=== PATIENT | female | born 1935 | race Caucasian/White ===

== ENCOUNTER 2023-08-07 08:42 | Outpatient (AMB) | payer MEDICARE, SELFPAY ==
[2023-08-07 09:01] VITALS: BP 136/90; PULSE 99; TEMP 36.6; O2SAT 100; BMI 22.2
--- NOTE | 2023-08-07 09:01 | MHC.PC.OV ---
Vital Signs 08/07/23 09:01 Height 4 ft 11 in Weight 110 lb BMI 22.2 BP 136/90 H Blood Pressure Location Lt brachial Position Sitting Pulse 99 Pulse Source Pulse Oximeter Temp 97.9 F Temp Source Oral Pulse Oximetry (%) 100 Oxygen Delivery Method Room Air Intake Visit Reasons: ? Sinus infection Intake Note: pt states sinus infection X2days, pt states sinus pressure, cough, and sore throat [employer] Required: No Allergies No Known Allergies Allergy (Verified 08/07/23 09:12) Medication List - Last Reconciled 08/07/23 by Blanca Castillo, [employer]- losartan 25 mg PO DAILY Tobacco use date assessed: 08/07/23 Fall risk assessment: No Falls in past year Last assessed Fall Risk: 08/07/23 HPI HPI Comments History of Present Illness Details Here today w/ sore throat, ear ache, PND, dental pain has known recurrent sinusitis Started on Monday UTD on vaccines Used flonase at home - this helped but caused nose bleed APAP PFSH Social History Patient Tobacco Use Status: Never used Tobacco Cognitive needs: No Hearing needs: No Vision needs: No Questionnaire AUDIT C Alcohol Use Questionnaire (AUDIT-C) 1. How often do you have a drink containing alcohol?: Never 2. How many drinks containing alcohol do you have on a typical day when you are drinking?: 1 or 2 (0) 3. How often do you have six or more drinks on one occasion?: Never Total Score: 0 Review of Systems Const All systems reviewed & are unremarkable except as noted in HPI and below Physical exam (Primary Care) Vital Signs: Last Vital Signs Temp 97.9 F 08/07/23 09:01 Pulse 99 08/07/23 09:01 BP 136/90 H 08/07/23 09:01 Pulse Ox 100 08/07/23 09:01 Oxygen Delivery Method Room Air 08/07/23 09:01 BMI result Body Mass Index 22.2 Tobacco/Smoking Status: Tobacco use Status Tobacco use date assessed 08/07/23 08/07/23 09:03 Patient Tobacco Use Status Never used Tobacco 08/07/23 09:03 Const Other: Awake alert oriented no acute distress Sclera conjunctiva clear bilat wearing glasses TM intact bilat, effusions bilat right worse than left Nares patent, turbinates erythematous, edematous on the right, frontal and maxillary sinus tenderness with palpation worse over right maxillary Pharynx with postnasal drip otherwise clear rrr Lung sounds clear to auscultation bilat Assessment and Plan Assessment & Plan (1) Acute sinus infection: Code(s): J01.90 - Acute sinusitis, unspecified Qualifiers: Sinusitis location: pansinusitis Recurrence: recurrent Qualified Code(s): J01.41 - Acute recurrent pansinusitis Plan Reports she is done quite well with amoxicillin in the past. I have renally doses given her age. She should take as directed. Okay to continue the Flonase as long as it does not continue to cause a bloody nose. Otherwise nasal saline it is the only other recommended product for her nose. If not feeling better or any worsening of symptoms advised for her to return to the office otherwise I hope that she feels much better Medications: New amoxicillin-pot clavulanate 500-125 mg 1 tab PO BID 7 days 14 tabs 0RF Coding Level of Care Code Est Pt Level 3 (40019) Diagnoses Acute recurrent pansinusitis J01.41 Sinusitis location: pansinusitis Recurrence: recurrent
== END 2023-08-07 09:19 | disposition home or self-care (01) ==
PROVIDERS: Visit Provider Nurse Practitioner Family
DX: J01.41 Acute recurrent pansinusitis (principal)
CPT/HCPCS: 99213